=== PATIENT | female | born 1995 | race Caucasian/White ===

== ENCOUNTER 2017-03-26 17:23 | Emergency (ER) | payer OTHER ==
[~2017-03-26] VITALS: Ht 165.1 cm; Wt 115.7 kg
[~2017-03-26 17:23] MED LIST: DOXYCYCLINE HY100 MG PO; GENTAMICIN SULFA5 ML OD; METOCLOPRAMIDE10 MG PO; OMEPRAZOLE20 M1 PO; PROTONIX40 MG PO; REGLAN10 MG PO; TRAMADOL HCL50 MG PO
[2017-03-26] MEDS ORDERED: CIPRO500 MG PO (19:04)
== END 2017-03-26 19:13 | disposition home or self-care (01) ==
LOC: ED 17:23
DX: N39.0 Urinary tract infection, site not specified (principal); E66.01 Morbid (severe) obesity due to excess calories; F17.200 Nicotine dependence, unspecified, uncomplicated
CPT/HCPCS: 81001; 87077; 87088; 87186; 99283

== ENCOUNTER 2019-06-09 00:09 | Emergency (ER) | payer OTHER ==
[~2019-06-09] VITALS: Ht 165.1 cm; Wt 137.9 kg
--- OUTSIDE RECORDS SUMMARY | ~2019-06-09 | XMS | Clinical Summary ---
Demographics + + + | Address | [address] | | | [place] [address] | + + + | Home Phone | | + + + | Preferred Language | Unknown | + + + | Marital Status | Single | + + + | Protestant Affiliation | 1013 | + + + | Race | Unknown | + + + | Ethnic Group | Unknown | + + + Author + + + | Author | [facility] | | | and [place] | + + + | Organization | [facility] | | | and [place] | + + + | Address | Unknown | + + + | Phone | Unavailable | + + + Support + + + + + | Name | Relationship | Address | Phone | + + + + + | Julia Parrish | ECON | [address] | | | | | [place] | | | | | [address] | | + + + + + Care Team Providers + +------+ + | Care Chief Pilot Name | Role | Phone | + +------+ + | Tex Colunga | PCP | | + +------+ + Allergies No Known Allergies Medications + + + +---------+------+------+-------+ | Medication | Sig | Dispensed | Refills | Star | End | Statu | | | | | | t | Date | s | | | | | | Date | | | + + + +---------+------+------+-------+ | | Take 1 tablet by | | 0 | | | Activ | | levonorgestrel-ethin | mouth Daily. | | | | | e | | yl estradiol | | | | | | | | (KURVELO) 0.15-30 | | | | | | | | MG-MCG per tablet | | | | | | | + + + +---------+------+------+-------+ | hydrOXYzine | Take 25 mg by mouth | | 0 | 07/0 | | Activ | | hydrochloride | nightly as needed. | | | 2/20 | | e | | (ATARAX) 25 mg | | | | 18 | | | | tablet | | | | | | | + + + +---------+------+------+-------+ Active Problems + + + | Problem | Noted Date | + + + | Upper back strain, initial encounter | 04/10/2018 | + + + | Strain of neck muscle, initial encounter | 04/10/2018 | + + + | Chronic right-sided thoracic back pain, medial scapular, RUE | 03/08/2018 | | paresthesia | | + + + | Thoracic spine pain | 09/04/2017 | + + + | Neck pain on right side | 09/04/2017 | + + + | Weight loss | 12/19/2016 | + + + | Nausea with vomiting | 12/19/2016 | + + + | Gastroesophageal reflux disease, esophagitis presence not | 12/19/2016 | | specified | | + + + | Diarrhea, unspecified type | 12/19/2016 | + + + | Hematemesis, presence of nausea not specified | 12/19/2016 | + + + | Obesity, morbid, BMI 40.0-49.9 | 12/19/2016 | + + + Family History + + +-------+ + | Medical History | Relation | Name | Comments | + + +-------+ + | No known problems | Father | | | + + +-------+ + | Diabetes | Mother | JULIA | | | | | PARRISH | | + + +-------+ + | Other cancer | Other | | Skin | + + +-------+ + + +-------+--------+ + | Relation | Name | Status | Comments | + +-------+--------+ + | Father | | Alive | | + +-------+--------+ + | Mother | JULIA | Alive | | | | PARRISH | | | + +-------+--------+ + | Other | | | | + +-------+--------+ + Social History + + + +--------+ + | Tobacco Use | Types | Packs/Day | Years | Date | | | | | Used | | + + + +--------+ + | Former Smoker | Cigarettes | 0.25 | 0.33 | 02/26/2016 - | | | | | | 06/28/2016 | + + + +--------+ + + +---+---+---+ | Smokeless Tobacco: | | | | | Never Used | | | | + +---+---+---+ + + +---------+ + | Alcohol Use | Drinks/We | oz/Week | Comments | | | ek | | | + + +---------+ + | No | | | | + + +---------+ + + + + | Sex Assigned at | Date Recorded | | | | + + + | Not on file | | + + + + + + + | Job Start Date | Occupation | Industry | + + + + | Not on file | Not on file | Not on file | + + + + + + + + | Travel History | Travel Start | Travel End | + + + + + + | No recent travel history available. | + + Last Filed Vital Signs + + + + | Vital Sign | Reading | Time Taken | + + + + | Blood Pressure | 123/75 | 04/10/2018 1502 PDT | + + + + | Pulse | 90 | 04/10/20182 PDT | + + + + | Temperature | 37.3 C (99.2 F) | 07/17/20171556 PST | + + + + | Respiratory Rate | 18 | 07/17/20171556 PST | + + + + | Oxygen Saturation | 98% | 09/04/2017 1056 PST | + + + + | Inhaled Oxygen | - | - | | Concentration | | | + + + + | Weight | 115.2 kg (254 lb) | 04/10/20181501 PDT | + + + + | Height | 165.1 cm (5' 5") | 04/10/20181501 PDT | + + + + | Body Mass Index | 42.27 | 04/10/20181501 PDT | + + + + Plan of Treatment + + + + + | Health Maintenance | Due Date | Last Done | Comments | + + + + + | Well Child Check | | | | | | 0 | | | + + + + + | Vaccine: HPV (1 - | | | | | Female 3-dose | 2 | | | | series) | | | | + + + + + | Vaccine: | | | | | Dtap/Tdap/Td (1 - | 6 | | | | Tdap) | | | | + + + + + | Cervical Cancer | | | | | Screening (Pap) | 8 | | | + + + + + | Vaccine: Influenza | | | | | (#1) | 9 | | | + + + + + Results Not on filefrom Last 3 Months Insurance + +--------+ +--------+ +---------+--------+ | Payer | Benefi | Subscriber | Effect | Phone | Address | Type | | | t Plan | ID | jairo | | | | | | / | | Dates | | | | | | Group | | | | | | + +--------+ +--------+ +---------+--------+ | STATE [employer] | STATE | [id number] | | [phone] | | Indemn | | | FARM | 7 | 017-Pr | 2 | | ity | | | [place] REG | | esent | | | | | | MVA | | | | | | + +--------+ +--------+ +---------+--------+ | [employer] | MODA | [id number] | | [phone] | | Medica | | MEDICAID HMO | HEALTH | | 017-Pr | 1 | | id | | | MDCD | | esent | | | | | | [place]MO [place] | | | | | | + +--------+ +--------+ +---------+--------+ + +--------+ +--------+ + + | Guarantor Name | Accoun | Relation to | Date | Phone | Billing Address | | | t Type | Patient | of | | | | | | | | | | + +--------+ +--------+ + + | Marleni Parrish | Person | Self | [birth year] | [address] | | | al/Fam | | 1994 | [address] | | | [place] | | | [address] (Home) | [place] [address] | + +--------+ +--------+ + + | Marleni Parrish | Third | Self | [birth year] | | [address] | | | [employer] | | 1994 | | [place] [address] | | | [place] | | | 8 (Home) | | | | ity | | | | | + +--------+ +--------+ + + Advance Directives Patient has advance care planning documents on file. For more information, please contact:[facility] [place] [address]
--- OUTSIDE RECORDS SUMMARY | ~2019-06-09 | XMS | Clinical Summary ---
Demographics + + + | Address | [address] | | | [place] [address] | + + + | Home Phone | | + + + | Preferred Language | Unknown | + + + | Marital Status | Single | + + + | Nondenominational Affiliation | 1013 | + + + | Race | Unknown | + + + | Ethnic Group | Unknown | + + + Author + + + | Author | [facility] | | | and [place] | + + + | Organization | [facility] | | | and [place] | + + + | Address | Unknown | + + + | Phone | Unavailable | + + + Support + + + + + | Name | Relationship | Address | Phone | + + + + + | Julia Parrish | ECON | [address] | | | | | [place] | | | | | [address] | | + + + + + Care Team Providers + +------+ + | Care Nursing Coordinator Name | Role | Phone | + [...] | STATE [employer] | STATE | [id number] | | [phone] | | Indemn | | | FARM | 7 | 017-Pr | 2 | | ity | | | NW REG | | esent | | | | | | MVA | | | | | | + +--------+ +--------+ +---------+--------+ | [employer] | MODA | [id number] | | [phone] | | Medica | | MEDICAID HMO [...] | | al/Fam | | 1994 | [address] | | | [place] | | | [address] (Home) | [place] [address] | + +--------+ +--------+ + + | Marleni Parrish | Third | Self | [birth year] | | [address] | | | [employer] | | 1994 | | [place] [address] | | | [place] | | | 8 (Home) | | | | ity | | | | | + +--------+ +--------+ + + Advance Directives Patient has advance care planning documents on file. For more information, please contact:[facility] [place] [address]
[~2019-06-09 00:09] MED LIST changes: +CELEXA20 MG PO; +CIPRO500 MG PO; +LATUDA20 MG PO; +MACROBID 100 M100 MG PO; +MARLISSA1 EACH PO; +MOTRIN IB200 MG PO; +NORCO 5-325 TA1 EACH PO; +PRAZOSIN HCL1 MG PO; +ZOFRAN ODT4 MG PO; +ZOFRAN4 MG PO
--- OUTSIDE RECORDS SUMMARY | 2019-06-09 00:12 | XMS ---
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 E.D. VISIT COUNT (12 MO.) 3 ANEUDY Hicks TOTAL 3 NOTE: Visits indicate total known visits. ED/UCC VISIT TRACKING (12 MO.) 06/09/2019 00:10 [facility]UD[facility] [place] TYPE: Emergency COMPLAINT: - VOMITING 03/20/2019 08:20 [facility] [place] TYPE: Emergency COMPLAINT: - ABD PAIN DIAGNOSES: - Urinary tract infection, site not specified - Nausea with vomiting, unspecified - Other oysterman (current) drug therapy 06/21/2018 16:02 ANEUDY [place] TYPE: Emergency COMPLAINT: - ABD PAIN DIAGNOSES: - Obesity, unspecified - Right lower quadrant pain INPATIENT VISIT TRACKING (12 MO.) No inpatient visits to display in this time frame [email or web address]
[2019-06-09] MEDS ORDERED: NUVARING VAGIN1 EACH VAGINAL (00:25)
[2019-06-09] MEDS ORDERED: REGLAN10 MG PO (00:25)
[2019-06-09] MEDS ORDERED: PROTONIX40 MG PO (01:23)
[2019-06-09] MEDS ORDERED: ZOFRAN4 MG PO (01:23)
== END 2019-06-09 02:06 | disposition home or self-care (01) ==
LOC: ED 00:09
DX: K29.00 Acute gastritis without bleeding (principal); Z87.891 Personal history of nicotine dependence; Z91.040 Latex allergy status; Z79.899 Other long term (current) drug therapy
CPT/HCPCS: 80053; 81001; 83735; 84703; 85025; 85610; 85730; 96361; 96374; 96375; 99284-25; C9113; J2405; J7030; J7040

== ENCOUNTER 2021-04-13 19:24 | Observation (INO) | payer OTHER ==
[~2021-04-13] VITALS: Ht 165.1 cm; Wt 140.8 kg
[~2021-04-13 19:24] MED LIST changes: +NUVARING VAGIN1 EACH VAGINAL
[2021-04-13] MEDS ORDERED: QUETIAPINE FUMA50 MG PO (20:41)
--- NOTE | 2021-04-14 01:32 | NUR ---
PATIENT ARRIVED TO THE FLOOR VIA WHEELCHAIR. PATIENT WAS ABLE TO AMBUKLATE WITH NO ASSISTANCE FROM WHEELCHAIR TO BED. ADMISSION COMPLETED. MEDICATION GIVEN PER ORDER. EDUCATED PATIENT ON DIET. ORIENTED PATIENT TO THE FLOOR, CALL LIGHT, AND PLAN OF CARE. ALL QUESTIONS ANSWERED. PATIENT DENIES ANY NEEDS AT THIS TIME. CALL LIGHT IN REACH.
--- NOTE | 2021-04-14 01:50 | NUR ---
PT CALLED, IV ALARMING. STATES HER NAUSEA IS BETTER, AND STILL HUNGRY, BUT UNDERSTANDS THAT SHE IS NPO. ON PHONE VISITING WITH ELYSSA. WARM BLANKET REQUESTED AND RECEIVED. EDUCATED ON HOW TO TURN ROOM LIGHTS ON AND OFF.
--- NOTE | 2021-04-14 03:02 | NUR ---
CHECKED ON PT, LAYING ON HER STOMACH, RESP EVEN AND UNLABORED. IV INFUSING.
--- NOTE | 2021-04-14 07:00 | NUR ---
PATIENTS VITALS TAKEN AND RECORDED. INTAKE AND OUPUT RECORDED. PATIENT UP TO THE RESTROOM A SBA. PATIENT WAS ABLE TO VOID. BACK IN BED RESTING. NO FURTHER NEEDS NOTED. IV INFUSING. CALL LIGHT IN REACH.
--- NOTE | 2021-04-14 07:32 | CONS ---
[facility] [address] [place], [place] [address] Signed DATE OF CONSULTATION: 04/14/2021 CHIEF COMPLAINT: Right upper quadrant abdominal pain. HISTORY OF PRESENT ILLNESS: Pipe is a 25-year-old obese female, who has had right upper quadrant abdominal pain for three weeks, associated with nausea and dehydration. She felt this was different than her usual kidney stone pain. She finally came to the emergency room for evaluation. In the emergency room, she was mildly tender in the right upper quadrant. Labs were essentially unremarkable. Ultrasound showed her gallbladder wall to be a little thick at 3 mm with a 1 cm stone and unremarkable ducts. Exam was somewhat limited due to her body habitus associated with her obesity from her polycystic ovarian syndrome. She has been admitted overnight, started on Rocephin and Flagyl. She told me this morning she feels better. PAST MEDICAL HISTORY: 1. Obesity. 2. Urinary tract infections. 3. Polycystic ovarian syndrome. 4. Kidney stones and infections. PAST SURGICAL HISTORY: 1. [place] teeth extractions. 2. Upper and lower endoscopy. 3. Exploratory laparoscopy in April [address] Serg Mcneil for polycystic ovarian disease. SOCIAL HISTORY: She does not smoke, but has an occasional drink. She does use a little marijuana. 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 She lives with her roommate, Gaudencio. They have no children. She does drive. She prefers the [facility]. Her grandmother is Yeni Delgado at [phone]. Nitin Colunga is her physician's laboratory assistant. FAMILY HISTORY: None. REVIEW OF SYSTEMS: She had 10 systems reviewed and she told me about her polycystic ovarian disease and her kidney stones. ALLERGIES: Chlorhexidine, latex and anesthesia causes nausea and vomiting. Electronically Signed By: MADIHA FORTUNE MD 04/14/21 0732 PATIENT NAME: PIPE ROJAS CONSULTATION DATE OF : [birth year] REPORT #: [id number] PHYSICIAN: MADIHA FORTUNE MD PCP: NITIN COLUNGA REPORT IS CONFIDENTIAL AND NOT TO BE RELEASED WITHOUT AUTHORIZATION [facility] [address] [place], [place] [address] Signed MEDICATIONS: NuvaRing. She stopped the quetiapine. PHYSICAL EXAMINATION: VITAL SIGNS: Blood pressure 120/68, heart rate 72, respiratory rate 16, temperature is 98.1. She is 100% on room air. She is 5 feet 5 inches at 140 kg. GENERAL: Pipe is a 25-year-old female, lying supine in her hospital bed. She does not appear systemically ill or toxic. LUNGS: Clear to auscultation bilaterally. HEART: Regular rate and rhythm without murmurs. ABDOMEN: Obese, soft with very little if any tenderness in the right upper quadrant. LABORATORY DATA: Her white blood count is 9.8, hemoglobin 14, neutrophils 52. Electrolytes are unremarkable. COVID is negative. Beta-hCG is negative. Total bilirubin 0.3, AST 23, ALT 42, alkaline phosphatase 67, albumin 3.9. Lipase is 32. Urinalysis is equivocal. RADIOGRAPHIC STUDIES: Ultrasound of the gallbladder shows the gallbladder wall slightly thickened at 3 mm with probable 1 cm stone in the neck of the gallbladder. The intrahepatic ducts are unremarkable, difficult to see the common bile duct from her obesity. ASSESSMENT AND PLAN: Pipe is a 25-year-old obese female, who presents with what appears to be symptomatic cholelithiasis. She has been admitted, IV fluids and antibiotics. She told me I helped her friend fill up with his gallbladder a few months back. I gave her a brochure on the gallbladder. We discussed the location and function in detail. She understands laparoscopic versus open cholecystectomy. She understands there is risk including, but not limited to bleeding, infection, scarring, change in contour of the skin, damage to bowel, damage to main bile duct, incisional hernias and other unforeseen comorbidities. She also understands expected intraop and postop course. She has expressed understanding and would like to proceed with surgery later today. She will be added onto the schedule. She has expressed understanding and agrees to the above plan. Madiha Fortune MD [facility] /[id number] Electronically Signed By: MADIHA FORTUNE MD 04/14/21 0732 PATIENT NAME: PIPE ROJAS CONSULTATION DATE OF : [birth year] REPORT #: [id number] PHYSICIAN: MADIHA FORTUNE MD PCP: NITIN COLUNGA REPORT IS CONFIDENTIAL AND NOT TO BE RELEASED WITHOUT AUTHORIZATION [address] [address] Signed cc: RIKA Marin MD Copies: NITIN COLUNGA ANDREW L MD ~ Electronically Signed By: MADIHA FORTUNE MD 04/14/21 0732 PATIENT NAME: PIPE ROJAS CONSULTATION DATE OF : [birth year] REPORT #: [id number] PHYSICIAN: MADIHA FORTUNE MD PCP: NITIN COLUNGA REPORT IS CONFIDENTIAL AND NOT TO BE RELEASED WITHOUT AUTHORIZATION
--- NOTE | 2021-04-14 07:39 | NUR ---
this rn received report from bobby martinez. pt appears to resting at this time with roommate at bedside, respirations noted, this rn will check on pt later.
--- NOTE | 2021-04-14 07:57 | NUR ---
THIS RN IN TO GET PT READY FOR SURGERY. PT STATES THAT SHE CANNOT DO THE WIPES DUE TO HER LATEX ALLERGY. SHE ALSO CANNOT DO THE HIBACLENSE SHOWER DUE TO CHLOHEXIDINE IN IT. PT IS READY FOR SURGERY OTHERWISE. PT RATES PAIN 6/10 AND THIS IS TOLERABLE AT THIS TIME.
--- NOTE | 2021-04-14 08:55 | NUR ---
THIS RN IN PTS ROOM TO GIVE PT HER REQUESTED DILAUDID. PT STATES THAT THE PAIN IS 7/10 AND BECOMING INTOLERABLE. THIS RN PROVIDED PT WITH 0.5MG OF DILUADID.
--- NOTE | 2021-04-14 10:20 | NUR ---
Spoke with Marleni and her SO, Baltazar. They live in a camper in [place]. She does not use any DME. She does use food stamps. She states she has a "stone stuck" and plans on surgery today at 9-10 am. She works at [employer]. Denies needs and plans on dc to home [place].
--- NOTE | 2021-04-14 10:26 | NUR ---
PT's nurse share that PT was about to have surgery and would most likely like a visit. I had a short visit with PT who was nervous about her surgery. She also shared about some life issues they were experiencing. PT's mother had several surgeries before she passed which is adding to PT's anxiety. She accepted my offer for prayer. I prayed for PT's surgery and her life issues and also for peace and a quick recovery. PT thanked me for the visit and prayer.
--- NOTE | 2021-04-14 13:33 | NUR ---
04/14/21 1333 Sheets,Claudia 1327 PT ARRIVED TO PACU ON 6L VIA MASK, ORAL AIRWAY IN PLACE. RESP EVEN AND UNLABORED. JAW THRUST USED OFF AND ON TO MAINTAIN AIRWAY.
--- NOTE | 2021-04-14 15:00 | NUR ---
THIS RN RECEIVED UPDATE REPORT ON PT FROM HANNAH SOLORZANO. PT ARRIVED FROM PACU VIA STRETCHER. PT APPEARS TO BE SLIGHTLY DROWSY BUT ABLE TO ANSWER QUESTIONS. PT ABLE TO ROLL WELL AND GET COMFORTABLE. PT DENIES INCREASED NAUSEA BUT DOES STATE SHE HAS PAIN 7/10. PT HAS 5 LAP SITES NOTED, ALL CLEAN DRY AND INTACT.
[2021-04-14] MEDS ORDERED: HYDROCODON-ACE1 EAC8 PO (16:23)
[2021-04-14] MEDS ORDERED: ZOFRAN4 MG SL (16:24)
[2021-04-14] MEDS ORDERED: PROMETHAZINE HC25 M1 PO (16:26)
--- NOTE | 2021-04-14 16:50 | NUR ---
THIS RN IN PTS ROOM TO CHECK ON PT. PT STATES THAT HSE WAS ABLE TO VOID AND DOING WELL, MOVEMENT DID MAKE HER SORE. THIS RN TO PROVIDE PT WITH PUDDING AND CRACKERS TO ASSIST PT ALONG WITH POSSIBLY GOING HOME TONIGHT. PT STATES THAT SHE WANTS TO GO HOME THIS EVENING, PTS GRANDMA IN ROOM TO TAKE PTS PERSCRIPTIONS TO GET THEM FILLED.
--- NOTE | 2021-04-15 05:41 | OR ---
[facility] [address] [place], [place] [address] Signed DATE OF OPERATION: 04/14/2021 SURGEON: Madiha Fortune MD PREOPERATIVE DIAGNOSES: 1. Acute on chronic cholecystitis, cholelithiasis (1 cm). 2. Severe morbid obesity. POSTOPERATIVE DIAGNOSES: 1. Acute on chronic cholecystitis, cholelithiasis (1 cm). 2. Severe morbid obesity. 3. Severe cholesterolosis. PROCEDURE: Laparoscopic cholecystectomy with intraoperative cholangiogram (prolonged and difficult at 1 hour and extra nurse to help retract). ESTIMATED BLOOD LOSS: None. FINDINGS: The intraoperative cholangiogram was unremarkable. She had a single as 1 cm stone in the neck of the gallbladder. Because of her body habitus and body mass index, we needed an extra nurse to scrub and the fan retractor to help hold the transverse colon down and out of the way in order to dissect the triangle of Calot. The procedure took 1 hour, which is more than 20 minutes beyond usual. In this way, her procedure was prolonged and difficult. INDICATIONS: Pipe is a 25-year-old female at 5 feet 5 inches, 140 kg. She was having right upper quadrant abdominal pain for three weeks. She was having severe nausea and finally came to emergency room for evaluation. Her white count was normal along with the liver function tests. Beta-hCG was negative. COVID test was negative. Ultrasound showed the gallbladder wall little thick at 3 mm with a 1 cm stone and unremarkable intrahepatic bile ducts. Because of her body habitus, one could not see the common bile duct very well with the ultrasound. I have been asked to admit her as a general surgeon on-call overnight. She was hydrated and given Rocephin and Flagyl and pain control. I met with her this morning and we reviewed the above findings. I gave her a brochure on the gallbladder. She understands the location and function of the gallbladder. She told me I did her roommate's gallbladder previously. She understands there is risk including, Electronically Signed By: MADIHA FORTUNE MD 04/15/21 0541 PATIENT NAME: PIPE ROJAS OPERATIVE REPORT DATE OF : [birth year] REPORT #: [id number] PHYSICIAN: MADIHA FORTUNE MD PCP: NITIN NAVA REPORT IS CONFIDENTIAL AND NOT TO BE RELEASED WITHOUT AUTHORIZATION [facility] [address] [place], [place] [address] Signed but not limited to bleeding, infection, scarring, change in contour of the skin, damage to bowel, damage to main bile duct, incisional hernias and other unforeseen comorbidities. She understands expected intraop and postop course. She expressed understanding and would like to proceed. DESCRIPTION OF PROCEDURE: Pipe was taken into our operating room and placed in the supine position under general endotracheal tube anesthesia. She was already on preoperative antibiotics along with subcutaneous Lovenox. SCDs were utilized. She was prepped and draped in the usual sterile fashion. All trocars were placed in usual positions under direct visualization of camera without difficulty. The gallbladder was grasped and elevated in the right upper quadrant. The pictures were taken throughout for photodocumentation. We had introduced the fan retractor and have an additional nurse scrub in order to hold the transverse colon down and out of the way of the triangle of Calot. The triangle of Calot was very carefully and slowly dissected free. The intraoperative cholangiocatheter was inserted into the cystic duct. The intraoperative cholangiogram was performed and found to be unremarkable. The cystic duct stump with a PDS Endoloop and three clips were placed across the cystic duct stump to narinder its location. After this, the gallbladder was removed from the gallbladder fossa with the help of the cautery and placed into an EndoCatch bag. The right upper quadrant was irrigated and suctioned out until clear. We used our laparoscopic suturing device to pass 0-Vicryl suture on either side of the fascia of the subxiphoid trocar site as well as the mid epigastric trocar site. These were tied down to close that fascia primarily. The gas was then allowed to escape and all the trocars removed along with the gallbladder. The gallbladder was opened on the back table by our circulating nurse for photodocumentation. She had a 1 cm yellow cholesterol stone and severe cholesterolosis of the gallbladder wall. The fascia of the supraumbilical trocar site was closed with interrupted [id number] and simple 0-Vicryl sutures. Local anesthetic was injected into all trocar sites. Each trocar site was irrigated and suctioned out until clear. We closed the dermis of each trocar site with interrupted 3-0 subcuticular Monocryl sutures. We used freedom to approximate the skin on the three midline incisions. Dry gauze and tape were then applied to all incisions. Pipe was awakened from anesthesia, extubated in the OR, and taken to recovery room in stable condition. Madiha Fortune MD [facility] /[id number] Electronically Signed By: MADIHA FORTUNE MD 04/15/21 0541 PATIENT NAME: PIPE ROJAS OPERATIVE REPORT DATE OF : [birth year] REPORT #: [id number] PHYSICIAN: MADIHA FORTUNE MD PCP: NITIN NAVA REPORT IS CONFIDENTIAL AND NOT TO BE RELEASED WITHOUT AUTHORIZATION [facility] [address] [facility] [place], [place] [address] Signed cc: MD Nitin Bond PA Copies: MADIHA FORTUNE MD, RANDALL PA ~ Electronically Signed By: MADIHA FORTUNE MD 04/15/21 0541 PATIENT NAME: PIPE ROJAS OPERATIVE REPORT DATE OF : [birth year] REPORT #: [id number] PHYSICIAN: MADIHA FORTUNE MD PCP: NITIN NAVA REPORT IS CONFIDENTIAL AND NOT TO BE RELEASED WITHOUT AUTHORIZATION
--- NOTE | 2021-04-15 14:01 | PATH ---
[facility] [address] [facility] [place], [place] [address] Signed SPECIMEN(S): A GALLBLADDER AND GALLSTONE SPECIMEN SOURCE: A. GALLBLADDER AND GALLSTONE CLINICAL HISTORY: Symptomatic cholelithiasis. FINAL PATHOLOGIC DIAGNOSIS: Gallbladder, cholecystectomy: - Chronic cholecystitis with cholesterolosis. - Cholelithiasis. NAL:cml:C2NR MICROSCOPIC EXAMINATION: Histologic sections of all submitted blocks are examined by light microscopy. These findings, together with the gross examination, support the pathologic diagnosis. GROSS DESCRIPTION: The specimen, labeled "SM, gallbladder," is received in formalin and consists of Specimen: Previously opened gallbladder. Dimensions: 5.0 cm in length and 4.3 cm in inner circumference. Serosa: violaceous and smooth. Cystic Duct: unobstructed. Calculi: One yellow gallstone within the container that measure 0.8 cm in diameter. Mucosa: [place]-c[place], velvety with yellow flecking. Wall thickness: 0.6 cm. Lymph node: No pericystic lymph nodes are grossly identified. Additional: None. Cargo Agent sections are submitted in cassette (A1). JS (under the direct supervision of a pathologist) The Gross Description was prepared using a voice recognition system. The report was reviewed for accuracy; however, sound-alike word errors, addition and/or deletions may occur. If there is any question about this report, please contact Client Services. PERFORMING LABORATORY: The technical component was performed by Spry, Debbie Shelley, PATIENT NAME: PIPE ROJAS PATHOLOGY DATE OF : [birth year] REPORT #: [id number] PHYSICIAN: COREY BRADFORD PCP: NITIN NAVA REPORT IS CONFIDENTIAL AND NOT TO BE RELEASED WITHOUT AUTHORIZATION [facility] [address] [place], [place] [address] [place] [id number] (Dye Stand Loader: Yoana Duran MD; CLIA# [id number]). Professional interpretation was performed by Spry, [facility], [address] [place] [id number] (CLIA# [id number]). Diagnostician: Ashley High MD Pathologist Electronically Signed 04/15/2021 Copies: ~ PATIENT NAME: PIPE ROJAS PATHOLOGY DATE OF : [birth year] REPORT #: [id number] PHYSICIAN: COREY BRADFORD PCP: NITIN NAVA REPORT IS CONFIDENTIAL AND NOT TO BE RELEASED WITHOUT AUTHORIZATION
== END 2021-04-14 18:30 | disposition home or self-care (01) ==
LOC: ED 19:24 → MS 19:25
PROVIDERS: ADMIT Colon & Rectal Surgery; ATTEND Colon & Rectal Surgery
PROC: BF03YZZ Plain Radiography of Gallbladder and Bile Ducts using Other Contrast (ICD-10-PCS; 2021-04-14)
PROC: 0FT44ZZ Resection of Gallbladder, Percutaneous Endoscopic Approach (ICD-10-PCS; principal; 2021-04-14 10:00)
DX: K80.12 Calculus of gallbladder with acute and chronic cholecystitis without obstruction (principal); E66.01 Morbid (severe) obesity due to excess calories; K76.0 Fatty (change of) liver, not elsewhere classified; Z20.822 Contact with and (suspected) exposure to COVID-19; Z87.891 Personal history of nicotine dependence; Z91.040 Latex allergy status; Z88.8 Allergy status to other drugs, medicaments and biological substances
CPT/HCPCS: 00790; 74300; 76705; 80053; 81001; 83690; 84703; 85025; 88304; 96365; 96367; 96375; 99285-25; C9803; G0378; J0330; J0696; J1100; J1170; J1200; J1650; J1790; J1885; J2001; J2250; J2405; J2550; J2704; J3010; J3475; J7030; J7121; Q9967; U0003